=== PATIENT | female | born 1970 | race Two or more races ===

== ENCOUNTER 2024-05-18 10:51 | Outpatient (RCR) | payer MEDICAID, SELFPAY ==
--- NOTE | 2024-05-18 11:14 | PT.ODS1RPT ---
PT OP Progress/Discharge Note Date of Service: 05/18/24 Progress Note/DC Note Progress Note/Discharge Note: DC Note Patient Information Visit Reasons: Pain in Left foot Service Continue Service or Discharge: Discharge Discharge Date: 05/18/24 Status Subjective: Therapy visits aren't helping the L foot pain. Increased foot pain with walking. Objective: L ankle AROM: DF: full PF: full TTP: moderate of medial arch Assessment: Pt has attended the eval and 3 therapy sessions with limited progress with therapy goals due to continued foot pain along medial arch where there is a protrusion and posterior tibialis tendon passes but the tendon doesn't hurt proximally. She is wearing arch support insoles and doing HEP without much relief. Pt is not making progress with goals and would benefit from further diagnostic imaging of the L foot such as MRI. Plan: D/C Procedure Charges Therapeutic Exercise 30 minutes: Yes
== END 2024-06-11 23:59 | disposition home or self-care (01) ==
LOC: CPTX 10:51
PROVIDERS: PCP Family Medicine; Referring Provider Family Medicine; Visit Provider Family Medicine
DX: M79.672 Pain in left foot (principal)
CPT/HCPCS: 97110

== ENCOUNTER → 2024-09-14 | Outpatient (CLI) | payer MEDICAID, SELFPAY ==
--- NOTE | 2024-09-14 15:15 | XR_ITS ---
Examination: MRI left foot, without contrast Date and time of exam: September 14, 2024 1542 hours INDICATIONS: Left foot heel and ankle pain one year Technique: Multiple axial sagittal and coronal images of the left foot have been obtained with the Siemens high-resolution 1.5 Norma MRI scanner. Images obtained include T2-weighted fat-suppressed sagittal sections, TR 3500, TE 46, T2 weighted coronal fat suppressed images, TR 3050, TE 84, T2-weighted transverse fat suppressed images, TR 3260, TE 63, proton density transverse images, TR 4720 TE 46, and T1 weighted coronal images, TR 560, TE 13. Findings: Longitudinal tear in the Achilles tendon, sagittal image 9 measuring up to 2 mm in thickness and cephalad caudad dimension 17 mm No acute transection of the Achilles tendon Mild plantar fasciitis No occult fracture, bone contusion or marrow edema Mild tendinitis flexor tendons Anterior posterior inferior tibiofibular ligaments and talofibular ligaments intact IMPRESSION: Longitudinal tear in the Achilles tendon as above
== END | disposition home or self-care (01) ==
LOC: SMRI 14:49
PROVIDERS: PCP Family Medicine; Referring Provider Family Medicine; Visit Provider Family Medicine
DX: S86.012A Strain of left Achilles tendon, initial encounter (principal); X58.XXXA Exposure to other specified factors, initial encounter
CPT/HCPCS: 73718